=== PATIENT | female | born 1975 | race Caucasian/White ===

== ENCOUNTER 2024-09-01 10:00 | Outpatient (RCR) | payer OTHER, SELFPAY | END 2024-09-01 23:59 | disposition home or self-care (01) | LOC: PT 10:00 | PROVIDERS: Visit Provider Student in an Organized Health Care Education/Training Program | DX: F07.81 Postconcussional syndrome (principal) | CPT/HCPCS: 97110; 97112; 97163 ==

== ENCOUNTER 2024-09-01 11:00 | Outpatient (RCR) | payer OTHER, SELFPAY | END 2024-09-01 23:59 | disposition home or self-care (01) | LOC: ST 11:00 | PROVIDERS: Visit Provider Student in an Organized Health Care Education/Training Program | DX: F07.81 Postconcussional syndrome (principal) | CPT/HCPCS: 92523 ==

== ENCOUNTER 2025-03-10 10:02 | Outpatient (CLI) | payer OTHER, SELFPAY ==
--- OUTSIDE RECORDS SUMMARY | 2025-03-12 10:11 | XMS_ITS | Encounter Summary ---
Author Organization [place] [address] Care Team Providers Care Dog Handler Name Role Phone Anderson Raj Martina MELENDEZ Primary Care Provider + [phone] Reason for Visit * Reason Onset Date Comments Appointment Needed 02/10/2025 Encounter Details Date Type Department Care Team (Late st Contact Info) Description 02/10/2025 Telephone [facility] [address] [place] [phone] Belia Rubi RN Appointment Needed Social History Tobacco Use Types Packs/Day Years Used Date Smoking Tobacco: Never Passive Smoke Exposure: Never Smokeless Tobacco: Never Alcohol Use Standard Drinks/Week Comments Not Currently 0 (1 standard drink = 0.6 oz pur e alcohol) Occasionally B1300 Health Literacy Answer Date Recor ded How often do you need to hav e someone help you when you read instructions, pamphlets, or other written material from your doctor or pharmacy? Never 01/22/2024 Social Connection and Isolation Panel [NHANES] A nswer Date Recorded Frequency of Communication with Friends and Fami ly Not on file 01/22/2024 Frequency of Social Gatherings with Friends and Family Not on file 01/22/2024 Attends Yazidi Services Not on file 01/21 Active Member of Clubs or Organizations Not on f ile 01/22/2024 Attends Club or Organization Meetings Not on sergo e 01/22/2024 Are you , , di vorced, , never , or living with a partner? 01/22/2024 AUDIT-C Answer Date Recorded Q1: How often do you have a drink containing alc ohol? Monthly or less 01/22/2024 Q2: How many drinks containi ng alcohol do you have on a typical day when you are drinking? 1 or 2 01/22/2024 Q3: How often do you have si x or more drinks on one occasion? Never 01/22/2024 Overall Financial Resource Strain (CARDIA) Answe r Date Recorded How hard is it for you to pa y for the very basics like food, housing, medical care, and heating? Not hard at all 01/22/2024 PHQ-2 Answer Date Recorded PHQ-2 Total Score 0 03/24/2024 [facility] - Occupational Stress Questionnaire Answer Date Recorded Do you feel stress - tense, restless, nervous, or anxious, or unable to sleep at night because your mind is troubled all the time - these days? Only a little 01/22/2024 Hunger Vital Sign Answer Date Recorded Within the past 12 months, y ou worried that your food would run out before you got the money to buy more. Never true 01/22/20 24 Within the past 12 months, t he food you bought just didn't last and you didn't have money to get more. Never true 01/22/2024 PRAPARE - Transportation Answer Date Re corded In the past 12 months, has l ack of transportation kept you from medical appointments or from getting medications? No 01/05 In the past 12 months, has l ack of transportation kept you from meetings, work, or from getting things needed for daily living? No 01/22/2024 Housing Stability Vital Sign Answer Demetrio e Recorded In the last 12 months, was t here a time when you were not able to pay the mortgage or rent on time? No 01/22/2024 In the past 12 months, how m any times have you moved where you were living? 0 01/22/2024 At any time in the past 12 m [facility], were you homeless or living in a residential (including now)? No 01/22/2024 Sexually Active Control Partners Comments Not Currently Abstinence, Post-menopausal, Surgical Fe male Comments No Sex and Gender Information Value Date Recorded Sex Assigned at Not on file Legal Sex Female 8:12 AM EDT Gender Identity Not on file Sexual Orientation Not on file documented as of this encounter Functional Status * Is the person deaf or does he/she have serious difficulty hearing? Answer Date of Assessment Author No 03/24/2024 3:57 PM EDT Jaspreet Andrews RMA * Is the person blind or does he/she have serious difficulty seeing even when wearing glasses? Answer Date of Assessment Author No 03/24/2024 3:57 PM EDT Jaspreet Anderws RMA * Does this person have serious difficulty walking or climbing stairs? Answer Date of Assessment Author No 03/24/2024 3:57 PM EDT Jaspreet Andrews RMA * Does this person have difficulty dressing or bathing? Answer Date of Assessment Author No 03/24/2024 3:57 PM EDT Jaspreet Andrews RMA * Because of a physical, mental or emotional condition, does this person have difficulty doing errands alone such as visiting a doctor's office or shopping? Answer Date of Assessment Author No 03/24/2024 3:57 PM EDT Jaspreet Andrews RMMartina documented as of this encounter Mental Status * Because of a physical, mental or emotional condition, does this person have serious difficulty concentrating, remembering or making decisions? Answer Entry Date Author No 03/24/2024 3:57 PM EDT Jaspreet Andrews RMA documented in this encounter Miscellaneous Notes * Telephone Encounter - Brooke Pastor RN - 02/17/2025 2:57 PM EDT Patient messaged that she in not taking the Arimidex. Encounter dated 09/27/24 is a message from to the patient discussing DCISionRT results does state that given her very low score, Dr. Samuel is comfortable with her not taking it. Given this information and the fact that patient's insurance does not cover DEXA scans, we will cancel the scan. Attempted to contact the patient, phone number has been changed or is out of service. Will send a [employer] message. * Telephone Encounter - Belia Rubi RN - 02/10/2025 4:05 PM EDT Pt is seeing [facility] for SVS on 03/30, on Arimidex, hasn't had a Dexa, order is in place. Attemtped tocall pt, number says phone is disconnected. Attemtped x2. Pt has a long drive to get here with a history of TBI. Dexa scheduled at 130, after SVS appt. N sent MyChart msg to patient to update documented in this encounter Plan of Treatment Upcoming Encounters Date Type Department Care Team (Late st Contact Info) Description 03/30/2025 12:30 PM EDT Appointment [facility] [place] [address] [facility] Yeboah, [place] [address] [place] [address] [place] [phone] 04/21/2025 10:20 AM EDT Office Visit [facility] [place] [phone] Yuki Ojeda APRN [address] [facility] [address] [place] [phone] documented as of this encounter Goals Goal Patient Goal Type Associated Problems Recent Progress Patient-Stated? Author Blood Pressure < 140/90 Blood Pressure 110/70(10/07 1:55 PM EDT) No Raj Anderson APRN Breast Health Breast Health On track(2024 3:01 PM EDT) No Jacqui Roman, RN Note: Patient acknowledges understanding of new diagnosis, plan of care, available resources and how to contact Nurse Navigator with any future questions or concerns. Maintain a healthy diet, exercise regularly and maintain an ideal body weight General No Jaspreet Andrews RMA BMI (Calculated) < 30 General 28.4( 025 1:55 PM EDT) No Raj Anderson APRN HEMOGLOBIN A1C < 7.0 Result Component 8.8(09/30/19 25 9:21 AM EDT) No Raj Anderson APRN documented as of this encounter Visit Diagnoses Not on filedocumented in this encounter Care Teams Dog Handler Relationship Specialty Start Date End Date Raj Anderson APRN PCP - General Nurse Practitioner 03/15/21 documented as of this encounter
--- OUTSIDE RECORDS SUMMARY | 2025-03-12 10:11 | XMS_ITS | Patient Health Record ---
Author Organization [facility] Address [address] [place] [address] Care Team Providers Care Long Chain Dyeing Machine Operator Name Role Phone ELAINA HA Primary Care Provider Unavailabl e Allergies Allergen (clinical drug ingredient) Drug/Non Drug Allergy documented on EMR Reaction Allergy Type Onset Date Status gabapentin Gabapentin Face Numbing Drug Allergy Ac tive Reason For Referral No Information Medications Medication SIG (Take, Route, Frequency, Duration) Notes Start Date End Date Status Fiasp PenFill 100 UNIT/ML as directed Subcutaneous Active Lantus 100 UNIT/ML as directed Subcutaneous Active Synthroid 25 MCG 1 tablet in the morn ing on an empty stomach Orally Once a day Active Social History Tobacco Use: Social History Observation Description Date Details (start date - stop date) Never Smoker NA - NA Tobacco Control (Standard) Question Answer Notes Tobacco use: Nonsmoker AUDIT-C (Standard) Question Answer Notes Did you have a drink contain ing alcohol in the past year? Yes How often did you have six o r more drinks on one occasion in the past year? 2 to 4 times a month (2 points) How many drinks did you have on a typical day when you were drinking in the past year? 3 or 4 drinks (1 point) How often did you have a dri nk containing alcohol in the past year? Never (0 point) Points 3 Interpretation Positive Problems Problem Type SNOMED Code ICD Code Onset Dates Problem Status W/U Status Risk Notes Problem Type 1 diabetes mellitus (56367700) Type 1 diabetes mellitus (E10.9) Active confirmed Problem Hypothyroid (78587253) Hypothyroid (E03.9) Active confirmed Plan Of Treatment No Information Insurance Providers Payer Name Payer Address Payer Phone Subscriber Number Group Number Insured Name Patient Relationship to Insured Coverage Start Date Coverage End Date [employer] [place] [address] [place] [address] [id number] Emily Nguyen Self - patient is the insured Medical (General) History Medical History History ICD Code Type 1 diabetes mellitus E10.9 Hypothyroid E03.9 Surgical History Surgery Date(Month/Year) Back Surgery 2X hysterectomy Hospitalization History Reason Date(Month/Year) Back Surgery Child
--- OUTSIDE RECORDS SUMMARY | 2025-03-12 10:11 | XMS_ITS | Clinical Summary ---
Author Organization [facility] Call Center Address [address] [place] [address] Phone Care Team Providers Care Hl7 Developer Name Role Phone Raj Anderson [place] Primary Care Provider + [phone] Allergies Active Allergy Reactions Criticality Noted Date Comments Azithromycin Other (See Comments) Low 05/17/2021 Body redness Gabapentin Swelling 09/16/2024 facial swelling Pravastatin Myalgia Low 04/17/2023 Prednisone Other (See Comments) Low 05/17/2021 Body redness Medications * This document contains information received from the source organization and may not represent a complete record from that organization. rimegepant 75 mg Oral Tablet, Rapid DissolveIndicatio ns:Migraine without aura and without status migrainosus, not intractable Take 1 Tablet by mouth daily as needed. 8 Tablet 2 03/20/20 22 Active Acetone, Urine, Test (KETONE URINE TEST) [facility] StripIndications: Type 1 diabetes mellitus without complication (HCC) 1 Each by [facility].(Non-Drug; Combo Route) route as needed. Test if blood sugar >250 and/or ill. E10.65 50 Each 2 04/30/20 22 Active glucagon (GVOKE HYPOPEN 2-PACK) 1 mg/0.2 mL SubQ Auto-InjectorIndi cations:Type 1 diabetes mellitus without complication (HCC) Subcutaneous (Inject under the skin) 0.2 mL as needed (To be used for severe low blood sugar. E10.65). 1 Each 2 04/17/20 23 Active Insulin Downey, Disposable, (BD ADELINA 2ND GEN PEN NEEDLE) 32 gauge x [facility] NeedleIndications :Type 1 diabetes mellitus without complication (HCC) Use to inject insulin 4 times daily. 400 Each 1 07/17/19 24 Active simvastatin (ZOCOR) 10 mg Oral Tablet Take 1 Tablet by mouth nightly. 90 Tablet 3 08/21/19 24 Active Blood-Glucose Sensor (FREESTYLE DEION 3 SENSOR) [facility] DeviceIndications :Type 1 diabetes mellitus with hyperglycemia (HCC) 1 Each by [facility]Non-Drug; Combo Route) route every 14 days. 2 Each 5 01/15/20 24 Active Additional Information Patient not taking.Reported on 10/07/2024 metFORMIN (GLUCOPHAGE XR) 500 mg Oral ER 24 hr tabletIndications :Type 1 diabetes mellitus with hyperglycemia (HCC) Take 1 Tablet by mouth daily. 90 Tablet 3 01/15/20 24 Active anastrozole (ARIMIDEX) 1 mg Oral Tablet Take 1 Tablet by mouth daily. 30 Tablet 5 01/29/20 24 Active Additional Information Patient not taking.Reported on 10/07/2024 insulin aspart, niacinamide, (FIASP FLEXTOUCH U-100 INSULIN) 100 unit/mL (3 mL) SubQ Insulin PenIndications:Ty pe 1 diabetes mellitus without complication (HCC) Subcutaneous (Inject under the skin) 10-14 Units 3 times daily (with meals). On sliding scale max dose 60 units daily 60 mL 3 04/13/20 24 Active venlafaxine (EFFEXOR) 37.5 mg Oral TabletIndications :Generalized anxiety disorder Take 1 Tablet by mouth 2 times daily (with meals). 180 Tablet 3 06/08/20 24 Active oxyCODONE (ROXICODONE) 5 mg Oral Tablet Take 1 Tablet by mouth every 4 hours as needed for Major Surgery/Trauma (G89.18). 15 Tablet 5 6:03 PM EST 07/22/19 25 Active lancets (ONE TOUCH DELICA) 33 gauge [facility] 1 Each by [facility]Non-Drug; Combo Route) route 3 times daily. 150 Each 5 10/08/19 25 Active insulin glargine (LANTUS SOLOSTAR U-100 INSULIN) 100 unit/mL (3 mL) SubQ Insulin PenIndications:Ty pe 1 diabetes mellitus with hyperglycemia (HCC) Inject 27 units once a day 30 mL 3 10/08/19 25 Active LEVOthyroxine (SYNTHROID) 100 mcg Oral TabletIndications :Hypothyroidism (acquired) Take 1 tablet by mouth once daily 100 Tablet 1 10/21/19 25 Active insulin lispro (HUMALOG) 100 unit/mL SubQ Insulin PenIndications:Ty pe 1 diabetes mellitus with hyperglycemia (HCC) INJECT UP TO 60 UNITS DAILY IN DIVIDED DOSES 60 mL 01/26/20 25 Active Blood Sugar Diagnostic (ONETOUCH VERIO TEST STRIPS) Misc Strip Use to check Blood Sugar 4 times daily 150 Each 5 02/18/20 25 Active Blood Sugar Diagnostic (ONETOUCH VERIO TEST STRIPS) Misc Strip Use to check Blood Sugar daily 100 Each 11 12/08/19 25 025 Discontin ued(Reord er) Active Problems Problem Noted Date Diagnosed Date 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 Cancer Staging:Pathologic:Stage Unknown(pTis (DCIS), pNX, G2, ER+, IL+, HER2: Not Assessed) - Unsigned Type 1 diabetes mellitus with hyperglycemia 04/07 Long-term insulin use 04/17/2023 Encounter for long-term (current) use of medicat ions 04/17/2023 Dyslipidemia due to type 1 diabetes mellitus 05/2023 Thyromegaly 04/17/2023 Vitamin D deficiency 03/21/2023 Generalized anxiety disorder 03/15/2021 Hypothyroidism (acquired) 03/15/2021 Resolved Problems Problem Noted Date Diagnosed Date Resolved Date Type 1 diabetes mellitus without complication 03/15/20 21 10/07/2024 Hyperlipidemia 06/07/2020 10/07/2024 Encounters Date Type Department Care Team Description 02/10/2025 Telephone [facility] Women's Wellness [place] [place] [address] Belia Rubi RN Appointment Needed 02/10/2025 Orders Only [facility] [address] [place] [address] Raj Anderson APRN Screening for cancer of the rectum; Screen for colon cancer 01/23/[address] [facility] [address] [facility] [address] [place] [phone] Yuki Ojeda APRN Medication Refill 01/07/2025 Telephone [facility] [address] [facility] [address] [place] [phone] Yuki Ojeda APRN Prior Authorization (Deion 3 sensor-approved) 12/29/2024 Telephone [facility] [address] [place] [address] Raj Anderson APRN Appointment Needed from Last 3 Months Immunizations Immunization Administration Dates Next Due Influenza Seasonal Injectable PF 03/24/2024 Moderna SARS-CoV-2 Vaccine 12+ Yrs (Light blue b order) 04/14/2021,03/15/2021 Pneumococcal Conjugate Vaccine 20 Valent 024 Surgical History Surgery Date Site/Laterality Comments BACK SURGERY 07/08/1987 - 07/07/1988 rods in back SECTION x 2 HYSTERECTOMY, SUPRACERVICAL BREAST BIOPSY 01/14/2024 Right BREAST LUMPECTOMY 07/22/2024 Right Right breast lumpectomy with bracket needle localization; Surgeon: Renetta Samuel MD; Location: [facility]; Service: General Medical History Medical History Date Comments Diabetes type 1, uncontrolled Anxiety Hyperlipemia Depression Hypothyroidism Heart murmur Headache Cancer (HCC) breast Encounter for blood transfusion Anesthesia complication woke up with facial swelling and ithching Family History Medical History Relation Name Comments Coronary Art Dis Father Dad Diabetes Father Dad Heart Attack Father Dad High Blood Pressure Father Dad High Cholesterol Father Dad Cancer Mother Ghazal breast cancer Diabetes Mother Ghazal Diabetes Paternal Grandmother [place] Anesth Problems Neg Hx Relation Name Status Comments Father Dad Mother Ghazal Paternal Grandmother [place] Social History Tobacco Use Types Packs/Day Years Used Date Smoking Tobacco: Never Passive Smoke Exposure: Never Smokeless Tobacco: Never Tobacco Cessation:Counseling Given: Not Answered Alcohol Use Standard Drinks/Week Comments Not Currently [...] and Family Not on file 01/22/2024 Attends Faith Services Not on file 01/21 Active Member [...] Date Recorded PHQ-2 Total Score 0 03/24/2024 [facility] Occupat ional Health - Occupational Stress [...] any time in the past 12 [address] [place], were you homeless or living in a halfway (including now)? No 01/22/2024 Sexually Active Control Partners Comments Not Currently Abstinence, Post-menopausal, Surgical Fe male Comments No Sex and Gender Information Value Date Recorded Sex Assigned at Not on file Legal Sex Female 8:12 AM EDT Gender Identity Not on file Sexual Orientation Not on file Obstetrics History Para Term AB IAB SAB Ectopic Multiple Livin g Live Births 3 3 3 Date Outcome GA Total Labor Labor/2nd/3rd Weight Sex Type Anes PTL Jing A1 A5 Name Clin Term Term Term Last Filed Vital Signs Vital Sign Reading Time Taken Comments Blood Pressure 110/70 10/07/2024 1:55 PM EDT Pulse 98 10/07/2024 1:55 PM EDT Temperature 36.8 C (98.2 F) 09/16/2024 2:59 PM EDT Respiratory Rate 12 10/07/2024 1:55 PM EDT Oxygen Saturation 100% 07/22/2024 10:45 PM EST Inhaled Oxygen Concentration - - Weight 71.2 kg (157 lb) 10/07/2024 1:55 PM EDT Height 158.5 cm (5' 2.4 ) 10/07/2024 1:55 PM EDT Body Mass Index 28.35 10/07/2024 1:55 PM EDT Plan of Treatment Upcoming Encounters Date Type Department Care Team (Late st Contact Info) Description 03/30/2025 12:30 PM EDT Appointment [facility] Women's Wellness [place] [facility] [place] [address] [place] NP [address] [facility] [place] [phone] 04/21/2025 10:20 AM EDT Office Visit [facility] [address] [phone] LynetteYuki nj APRN [address] [facility] [address] [place] [phone] Health Maintenance Due Date Last Done Comments DTaP/TDaP/Td (1 - Tdap) 1993 Hepatitis B Vaccine (1 of 3 - 19+ 3-dose series) 1993 Cologuard 2019 Colon Cancer Screening 2019 Colonoscopy 2019 FIT 2019 Sigmoidoscopy 2019 Virtual Colonography 2019 Diabetic Eye Exam 09/20/2023 09/19/2021 Zoster (1 of 2) 2024 COVID-19 Vaccine ( season) 2025 04/14/2021, 03/15/2021 Influenza Vaccine (#1) 2025 03/24/2024 Annual Wellness Exam 03/24/2025 03/24/2024 Kidney Health: uACR 03/24/2025 03/24/2024, Hemoglobin A1c 04/01/2025 09/29/2024, 06/0 09/2023, 08/12/2023, Additional history exists Kidney Health: eGFR 09/29/2025 09/29/2024, 12/09/2023, 08/12/2023, Additional history exists Lipids 09/29/2025 09/29/2024, 06/0 09/2023, 08/12/2023, Additional history exists Breast Cancer Screening 01/09/2026 01/10/2024, 12/18 Pap Smear 01/23/2027 01/24/2024 Cervical Cancer Screening 01/23/2029 HPV/Pap Cotest 01/23/2029 01/24/2024 Pneumococcal Vaccine 50+ Completed 03/24/2024 Meningococcal B Vaccine Aged Out No l onger eligible based on patient's age to complete this topic Goals Goal Patient Goal Type Associated Problems [...] HEMOGLOBIN A1C < 7.0 Result Component 8.8(09/30/19 9:21 AM EDT) No Raj Anderson APRN Procedures Procedure Name Priority Date/Time Associated Diagnosis Comments COMPREHENSIVE METABOLIC PANEL Routine 09/29/2024 9:21 AM EDT Encounter for long-term (current) use of medications LIPID PANEL REFLEX Routine 09/29/2024 9: 21 AM EDT Dyslipidemia due to type 1 diabetes mellitus (HCC) HEMOGLOBIN A1C Routine 09/29/2024 9:21 AM EDT Type 1 diabetes mellitus with hyperglycemia (HCC) FIRE CONTROL TECHNICIAN CYTOLOGY REQUEST (PAP ONLY) Routine 01/24/2024 2:19 PM EDT Cervical cancer screening Screening for HPV (human papillomavirus) MM MAMMO DIGITAL HELEN DIAGN RIGHT Routine 01/10/2024 3:10 PM EDT Abnormal mammogram MICROALBUMIN/CREATINI NE RATIO URINE Routine 04/08/2023 8:20 AM EDT Hypothyroidism (acquired) Type 1 diabetes mellitus with hyperglycemia (HCC) Vitamin D deficiency HM DIABETES EYE EXAM Routine 09/19/2021 from Last 3 Months or Most Recently Relevant to Health Maintenance Results * (ABNORMAL) LIPID PANEL REFLEX (09/29/2024 9:21 AM EDT) Cholesterol 280(H) <200 mg/dL 09/29/2024 7:55 PM EDT [facility] Comment: < 200 Desirable 200 - 239 Borderline High >= 240 High Triglyceride 139 <150 mg/dL 09/29/2024 7:55 PM EDT [facility] [employer] Comment: < 150 Normal 150 - 199 Borderline High 200 - 499 High >= 500 Very High HDL 55 >=40 mg/dL 09/29/2024 7:55 PM EDT [facility], [facility] Comment: > 60 Optimal 40 - 60 Acceptable < 40 Low LDL Calculated 200(H) <100 mg/dL 09/29/2024 7:55 PM EDT [facility] [employer], [facility] Comment: < 100 Optimal 100 - 129 Near or above optimal 130 - 159 Borderline High 160 - 189 High >= 190 Very High The National Institutes of Health (NIH) equation is used for all lipid panels that report calculated LDL (LDL-C). Non-HDL-C Calculated 225(H) <=129 mg/dL 09/29/2024 7:55 PM EDT [facility] [employer], [facility] Comment: <130 Desirable 130-159 Above Desirable 160-189 Borderline High 190-219 High >= 220 Very High Fasting Specimen? Yes None 025 7:55 PM EDT [facility] Blood VENOUS BLOOD / Unknown Venipuncture / Unknown 09/29/2024 9:21 AM EDT 09/29/2024 9:21 AM EDT Yuki Ojeda APRN CHEMISTRY ORDERABLES Final R esult [facility] [employer] [facility] [address] [facility] , [place] [address] * (ABNORMAL) HEMOGLOBIN A1C (09/29/2024 9:21 AM EDT) Hgb A1C 8.8(H) 4.2 - 5.6 % 09/29/2024 8:14 PM EDT [facility] [employer] [facility] Est. Avg Glucose 206 mg/dL 09/29/2024 8:14 PM EDT [facility] [employer], [facility] Blood VENOUS BLOOD / Unknown Venipuncture / Unknown 09/29/2024 9:21 AM EDT 09/29/2024 9:21 AM EDT Narrative [facility] - 09/29/2024 8:14 PM EDT REFERENCE RANGE: Normal: 4.0-5.6% Pre-diabetes: 5.7-6.4% Provisional diagnosis of diabetes: >6.4% Hgb F>10% and anything which shortens red cell survival, such as hemolytic anemia, or unstable hemoglobin variants such as HbSS, HbSC, or HbCC, will lower the HbA1c value associated with a given level of glycemic control. Yuki Ojeda COTTON WEIGHER OPERATOR CHEMISTRY ORDERABLES Final R esult [facility], [facility] [address] [facility] , [place] [address] * (ABNORMAL) COMPREHENSIVE METABOLIC PANEL (09/29/2024 9:21 AM EDT) Sodium 142 136 - 145 mmol/L 09/29/2024 7:55 PM EDT [facility] Potassium 3.8 3.5 - 5.0 mmol/L 09/29/2024 7:55 PM EDT [facility] Chloride 103 98 - 107 mmol/L 09/29/2024 7:55 PM EDT [facility] Total CO2 26 22 - 29 mmol/L 09/29/2024 7:55 PM EDT [facility] Anion Gap 13 7 - 16 mmol/L 09/29/2024 7:55 PM EDT [facility] Calcium 9.1 8.6 - 10.4 mg/dL 09/29/2024 7:55 PM EDT [facility] Glucose Lvl 208(H) 70 - 99 mg/dL 09/29/2024 7:55 PM EDT [facility] BUN 15 6 - 20 mg/dL 09/29/2024 7:55 PM EDT [facility] Creatinine 0.71 0.51 - 1.30 mg/dL 09/29/2024 7:55 PM EDT [facility] Albumin 4.2 3.5 - 5.2 gm/dL 09/29/2024 7:55 PM EDT [facility] Total Protein 7.3 6.4 - 8.3 gm/dL 09/29/2024 7:55 PM EDT [facility] Bili Total 0.2 0.2 - 1.3 mg/dL 09/29/2024 7:55 PM EDT [facility], [facility] ALT 24 <=41 U/L 09/29/2024 7:[address] [facility], [facility] AST 18 <=40 U/L 09/29/2024 7:[address] [facility], [facility] Alk Phos 106 36 - 123 U/L 09/29/2024 7:[address] [facility], [facility] eGFR (CKD-EPIcr 2020) 103 >=60 mL/min/1.7 3 m2 09/29/2024 7:55 PM EDT [facility], [facility] Comment:Estimated GFR was ca lculated using the CKD-EPIcr (2020) equation refit without race. The equation is recommended by the National Kidney Foundation - [place] [employer] of Nephrology Task Force. Blood VENOUS BLOOD / Unknown Venipuncture / Unknown 09/29/2024 9:21 AM EDT 09/29/2024 9:21 AM EDT us Yuki Ojeda COTTON WEIGHER OPERATOR CHEMISTRY ORDERABLES Final R esult [facility] 1 [facility] , [place] [id number] * FIRE CONTROL TECHNICIAN CYTOLOGY REQUEST (PAP ONLY) (01/24/2024 2:19 PM EDT) CASE REPORT Gynecologic Cytology Report Case: [id number] Authorizing Provider: Monik Ricks MD Collected: 01/24/2024 1419 Ordering Location: [facility] Edg Received: 01/24/2024 1419 First Screen: Brigitte Flores CT Specimen: LIQUID-BASED PAP - CERVICAL/ENDOCERV ICAL, Cervix, Endocervical 01/28/2024 4:01 PM EDT [facility] PAP FINAL DIAGNOSIS Negative for intraepithelial lesion or malignancy 01/28/2024 4:01 PM EDT [facility] at 1601 EDT MICROSCOPIC DESCRIPTION Microscopic examination is performed and the findings corroborate the diagnosis. 01/28/2024 4:01 PM EDT [facility] PAP SMEAR ADEQUACY Satisfactory for evaluation 01/28/2024 4:01 PM EDT [facility] PAP ORGANISMS NOTED Shift in kaitlynn suggestive of bacterial vaginosis. 01/28/2024 4:01 PM EDT [facility] ENDOCERVICAL T-ZONE Transformation Zone Absent. This is not unusual for a post-hysterectomy woman. 01/28/2024 4:01 PM EDT [facility] EMBEDDED IMAGES 4:01 PM EDT [facility] PAP DISCLAIMER The Pap Smear is a screening test that aids in the detection of cervical cancer and cancer precursors. Both false positive and false negative results can occur. The test should be used at regular intervals, and positive results should be confirmed before definitive therapy. Processed using the ThinPrep Micro Computer Data Processor Automated cytology screening device (Seeqpod). 01/28/2024 4:01 PM EDT [facility] Thin Prep ENDOCERVICAL STRUCTURE / Unknown 01/24/2024 2:19 PM EDT 01/24/2024 2:19 PM EDT us Monik Ricks MD CYTOLOGY ORDERABLES Fin al Result [facility] [address] [place] [address] * MM MAMMO DIGITAL HELEN DIAGN RIGHT (01/10/2024 3:10 PM EDT) Anatomical Region Laterality Modality Breast Right Mammography 01/10/2024 3:56 PM EDT Impressions 01/10/2024 3:56 PM EDT Suspicious abnormality ([id number]) Indeterminate right breast microcalcifications, biopsy recommended. ~ RECOMMENDATION: Stereotactic core biopsy. Today's imaging findings and biopsy recommendations discussed with the patient by Dr. Hughes. This procedure is being scheduled for the patient prior to leaving the department. A limited history is obtained and reported separately. The referring physician's office will be notified with the report and recommendation. ~ DISCLAIMER * Any patient with a palpable abnormality, unexplained by breast imaging, should be managed on clinical basis by the attending physician. * Breast imaging has a false negative rate of 15%. * The patient was notified by mail of the results of this examination. *The patient's information was entered into a reminder system with a target due date for the next mammogram, in accordance with the [place] [employer] and the Society of Breast Imaging recommendations. Narrative 01/10/2024 3:56 PM EDT Procedure:MM MAMMO DIGITAL HELEN DIAGN RIGHT ~ Reason for exam: addl evaluation requested from abnormal screening. R92.8-Other abnormal and inconclusive findings on diagnostic imaging of [id number] ~ MM MAMMO DIGITAL HELEN DIAGN RIGHT CC and MLO view(s) were taken of the right breast. Technologist: RT Omayra The breast tissue is heterogeneously dense. This may lower the sensitivity of mammography. Prior study comparison: Compared with prior studies, the most recent being 12/19/23, 11/17/19. Screening recall for right breast microcalcifications. In the posterior 10:00 to 11:00 position, there are grouped mildly heterogeneous calcifications which span 9-10 mm. No underlying mass or distortion. ~ Procedure Note Vanessa Hughes MD - 01/10/2024 Procedure:MM MAMMO DIGITAL HELEN DIAGN RIGHT ~ Reason for exam: addl evaluation requested from abnormal screening. R92.8-Other abnormal and inconclusive findings on diagnostic imaging of [id number] ~ MM MAMMO DIGITAL HELEN DIAGN RIGHT CC and MLO view(s) were taken of the right breast. Technologist: RT Omayra The breast tissue is heterogeneously dense. This may lower thesensitivity of mammography. Prior study comparison: Compared with prior studies, the most recentbeing 12/19/23, 11/17/19. Screening recall for right breast microcalcifications. In the posterior 10:00 to 11:00 position, there are grouped mildly heterogeneous calcifications which span 9-10 mm. No underlying mass or distortion. ~ IMPRESSION: Suspicious abnormality ([id number]) Indeterminate right breast microcalcifications, biopsy recommended. ~ RECOMMENDATION: Stereotactic core biopsy. Today's imaging findings and biopsy recommendations discussed with the patient by Dr. Hughes. This procedure is being scheduled for thepatient prior to leaving the department. A limited history is obtained andreported separately. The referring physician's office will be notified with the report and recommendation. ~ DISCLAIMER * Any patient with a palpable abnormality, unexplained by breast imaging, should be managed on clinical basis by the attending physician. * Breast imaging has a false negative rate of 15%. * The patient was notified by mail of the results of this examination. *The patient's information was entered into a reminder system with atarget due date for the next mammogram, in accordance with the [place] [employer] and the Society of Breast Imaging recommendations. Cristofer Ramachandran MD IMG MAMMOGRAPHY ORDERAB LES Final Result * MICROALBUMIN/CREATININE RATIO URINE (04/08/2023 8:20 AM EDT) Urine Microalb <12.0 mg/L 04/08/2023 9:47 PM EDT [facility] Urine Creatinine 116.2 mg/dL 04/08/20 23 9:47 PM EDT [facility] Ur Microalb/Creat 023 9:47 PM EDT [facility] Comment: Because the albumin level is below the level of detection in this urine specimen, the laboratory is unable to calculate a reliable albumin/creatinine ratio. Microalbuminuria is unlikely if the urine albumin concentration is less than 20- 30 mg/L in a random specimen. Urine URINE SPECIMEN COLLECTION / Unknown 04/08/2023 8:20 AM EDT 04/08/2023 8:20 AM EDT Chad Sheehan MD URINE ORDERABLES Final Res ult [facility] [address] [facility] , [place] [address] * DIABETES EYE EXAM (09/19/2021) Left Diabetic Retinopathy Not Present Present/Not Present [facility] Comment:Diabetic Retinopathy Right Diabetic Retinopathy Not Present Present/Not Present [facility] Comment:Diabetic Retinopathy Arnav Bedoya MD HEALTH MAINTENANCE Final Result [facility] OFFICE from Last 3 Months or Most Recently Relevant to Health Maintenance Insurance [address] [place] [address] [facility] [employer] [facility] [facility] [employer] Care Teams Hl7 Developer Relationship Specialty Start Date End Date Raj Anderson APRN PCP - General Nurse Practitioner 03/15/21
--- OUTSIDE RECORDS SUMMARY | 2025-03-12 10:11 | XMS_ITS | Encounter Summary ---
Author Organization [place] [address] Care Team Providers Care Cottage Attendant Name Role Phone Elieser Andersonian Martina MELENDEZ Primary Care Provider + [phone] Reason for Visit * Reason Onset Date Comments Prior Authorization 01/07/2025 Deion 3 sens or-approved Encounter Details Date Type Department Care Team (Late st Contact Info) Description 01/07/2025 Telephone [facility] [address] [facility] [address] [place] [id number] Yuki Ojeda APRN 1500 [facility] [address] [place] [phone] Prior Authorization (Deion 3 sensor-approved) Social History Tobacco Use Types Packs/Day Years [...] and Family Not on file 01/22/2024 Attends Mandaeism Services Not on file 01/21 Active Member [...] Date Recorded PHQ-2 Total Score 0 03/24/2024 [facility] of Occupat ional Health [...] any time in the past 12 m [facility], were you homeless or living in a group home (including now)? No 01/22/2024 Sexually Active Control [...] Andrews RMA * Does this person have serious [...] 3:57 PM EDT Jaspreet Andrews RMA documented as of this encounter Mental Status * Because of a physical, mental or emotional condition, does this person have serious difficulty concentrating, remembering or making decisions? Answer Entry Date Author No 03/24/2024 3:57 PM EDT Jaspreet Andrews RMMartina documented in this encounter Miscellaneous Notes * Telephone Encounter - Sera Lima MA - 01/12/2025 6:51 AM EDT approved 01/07/25-01/07/26 * Telephone Encounter - Sera Lima MA - 01/07/2025 3:08 PM EDT pa completed for Deion 3 sensor BAAMBRGY documented in this encounter Plan of Treatment Upcoming Encounters Date Type Department Care Team (Late st Contact Info) Description 03/30/2025 12:30 PM EDT Appointment [facility] Women's Wellness [place] One [facility] [place] [address] Carson Yeboah NP [address] [place] [address] [place] [address] 04/21/2025 10:20 AM EDT Office Visit [facility] [address] [place] [phone] Yuki Ojeda APRN [address] [phone] documented as of this encounter Goals [...] on filedocumented in this encounter Care Teams Cottage Attendant Relationship Specialty Start Date End Date Raj Anderson APRN PCP - General Nurse Practitioner 03/15/21 documented as of this encounter
--- OUTSIDE RECORDS SUMMARY | 2025-03-12 10:11 | XMS_ITS | Encounter Summary ---
Author Organization [place] [address] Care Team Providers Care Milieu Therapist Name Role Phone Raj Anderson APRN Primary Care Provider + [phone] Reason for Visit * Reason Comments Medication Refill Encounter Details Date Type Department Care Team (Late st Contact Info) Description 01/23/2025 Refill [facility] Physicians [facility] [place] 1500 [facility] [address] [place] [phone] Yuki Ojeda APRN 1500 [facility] [address] [place] [phone] Medication Refill Social History Tobacco Use Types Packs/Day Years [...] and Family Not on file 01/22/2024 Attends Hinduism Services Not on file 01/21 Active Member [...] Date Recorded PHQ-2 Total Score 0 03/24/2024 [facility] - [facility]ational Stress Questionnaire Answer Date Recorded [...] any time in the past 12 m [facility], were you homeless or living in a prison (including now)? No 01/22/2024 Sexually Active Control [...] Jaspreet Andrews RMA documented in this encounter Ordered Prescriptions Prescription Sig Dispense Quantity Refills Last Filled Start Date End Date insulin lispro (HUMALOG) 100 unit/mL SubQ Insulin PenIndications:Type 1 diabetes mellitus with hyperglycemia (HCC) INJECT UP TO 60 UNITS DAILY IN DIVIDED DOSES 60 mL 01/25/2025 documented in this encounter Miscellaneous Notes * Telephone Encounter - Cindi Lopez CPhT - 01/25/2025 1:23 PM EDT Insulin Lispro - Future Visit: 04-21-25 Last Assessed Visit: 10-07-24 Follow-Up: 01-06-25 All protocols passed. Refills approved and sent to requesting pharmacy. Routed to PN Pool if an appointment is needed. documented in this encounter Plan of Treatment Upcoming Encounters Date Type Department Care Team (Late st Contact Info) Description 03/30/2025 12:30 PM EDT Appointment [facility] Women's Wellness [place] One [facility] [place] [address] Carson Yeboah, LUCA [address] [place] [address] [place] [address] 04/21/2025 10:20 AM EDT Office Visit [facility] [place] [address] [place] [address] Yuki Ojeda APRN [address] [phone] documented as of this encounter [...] documented as of this encounter Visit Diagnoses Diagnosis Type 1 diabetes mellitus with hyperglycemia (HCC) Type I (juvenile type) diabetes mellitus without mention of complication, not stated as uncontrolled documented in this encounter Discontinued Medications Medication Sig Discontinue Reason Start Date End Da te insulin lispro (HUMALOG KWIKPEN INSULIN) 100 unit/mL SubQ Insulin PenIndications:Type 1 diabetes mellitus with hyperglycemia (HCC) Inject up to 60 units daily in divided doses. Dx Code: E10.9 07/27/2024 01/25/2025 documented as of this encounter Care Teams Milieu Therapist Relationship Specialty Start Date End Date Raj Anderson APRN PCP - General Nurse Practitioner 03/15/21 documented as of this encounter
--- OUTSIDE RECORDS SUMMARY | 2025-03-12 10:11 | XMS_ITS | Encounter Summary ---
Author [place] [address] Care Team Providers Care Assistant Refinery Operator Name Role Phone Raj Anderson APRN Primary Care Provider [phone] Reason for Referral * Genetic Lab Test (Routine) - Pending Review Specialty Diagnoses / Procedures Referred By Nancy mcclellan Referred To Contact Diagnoses Screening for cancer of the rectum Screen for colon cancer Procedures COLOGUARD Raj Anderson APRN [address] [place] [address] Phone: tel: fax: Referral ID Status Reason Start Date Expiration Date V isits Requested Visits Authorized [id number] Pending Review 02/10/2025 02/10/2026 1 1 Encounter Details Date Type Department Care Team (Late st Contact Info) Description 02/10/2025 Orders Only [facility] [address] [place] [address] Raj Anderson APRN [address] [place] [address] Screening for cancer of the rectum; Screen for colon cancer Social History Tobacco Use Types Packs/Day Years [...] and Family Not on file 01/22/2024 Attends Mandaen Services Not on file 01/21 Active Member [...] Date Recorded PHQ-2 Total Score 0 03/24/2024 [facility] of Occupat ional Health - Occupational Stress [...] any time in the past 12 m [facility], were you homeless or living in a snf (including now)? No 01/22/2024 Sexually Active Control [...] of Assessment Author No 03/24/2024 3:57 PM DOUGT Jaspreet Andrews RMA * Does this person [...] Jaspreet Andrews RMA documented in this encounter Plan of Treatment Upcoming Encounters Date Type Department Care Team (Late st Contact Info) Description 03/30/2025 12:30 PM EDT Appointment [facility] Women's Wellness [place] [facility] [place] [place] [address] Carson Yeboah NP [address] [place] [address] [place] [phone] 04/21/2025 10:20 AM EDT Office Visit [facility] [place] [address] [place] [address] Yuki Ojeda APRN [address] [phone] Scheduled Orders Name Type Priority Associated Diagnoses Orde r Schedule COLOGUARD Microbiology Routine Screening for cancer of the rectum Screen for colon cancer 1 Occurrences starting 02/10/2025 until 02/10/2026 documented as of this encounter Goals Goal [...] as of this encounter Visit Diagnoses Diagnosis Screening for cancer of the rectum Screening for malignant neoplasm of the rectum Screen for colon cancer Special screening for malignant neoplasms, colon documented in this encounter Care Teams Assistant Refinery Operator Relationship Specialty Start Date End Date Raj Anderson APRN PCP - General Nurse Practitioner 03/15/21 documented as of this encounter
--- OUTSIDE RECORDS SUMMARY | 2025-03-12 10:11 | XMS_ITS | Encounter Summary ---
Author Organization [address] [place] [address] Care Team Providers Care Machine Bobbin Winder Name Role Phone Raj Anderson APRN Primary Care Provider + [phone] Krystin Padilla RN Unavailable [phone] Encounter Details Date Type Department Care Team (Late st Contact Info) Description 01/14/2024 Orders Only [facility] One [facility] [place] [address] Swetha Turcios MD [address] [place] [phone] Social History Tobacco Use Types Packs/Day Years Used Date Smoking Tobacco: Never Smokeless Tobacco: Never Alcohol Use Standard Drinks/Week Comments Yes 0 (1 standard drink = 0.6 oz pur e alcohol) 2-3 x weekly PHQ-2 Answer Date Recorded PHQ-2 Total Score 0 03/15/2021 Sexually Active Control Partners Comments Yes Surgical Female Comments No Sex and Gender Information Value Date Recorded Sex Assigned at Not on file Legal Sex Female 8:12 AM EDT Gender Identity Not on file Sexual Orientation Not on file documented as of this encounter Functional Status * Is the person deaf or does he/she have serious difficulty hearing? Answer Date of Assessment Author No 03/15/2021 9:19 AM EDT Jaspreet Andrews RMA * Is the person blind or does he/she have serious difficulty seeing even when wearing glasses? Answer Date of Assessment Author No 03/15/2021 9:19 AM EDT Jaspreet Andrews RMA * Does this person have serious difficulty walking or climbing stairs? Answer Date of Assessment Author No 03/15/2021 9:19 AM EDT Jaspreet Andrews RMA * Does this person have difficulty dressing or bathing? Answer Date of Assessment Author No 03/15/2021 9:19 AM EDT Jaspreet Andrews RMA * Because of a physical, mental or emotional condition, does this person have difficulty doing errands alone such as visiting a doctor's office or shopping? Answer Date of Assessment Author No 03/15/2021 9:19 AM EDT Jaspreet Andrews RMA documented as of this encounter Mental Status * Because of a physical, mental or emotional condition, does this person have serious difficulty concentrating, remembering or making decisions? Answer Entry Date Author No 03/15/2021 9:19 AM EDT Jaspreet Andrews RMA documented in this encounter Plan of Treatment Upcoming Encounters Date Type Department Care Team (Late st Contact Info) Description 03/30/2025 12:30 PM EDT Appointment [facility] Women's Wellness [facility] [place] [address] Carson Yeboah NP [address] [place] [address] [place] [phone] 04/21/2025 10:20 AM EDT Office Visit [facility] [address] [address] Yuki Ojeda APRN [address] [address] documented as of this encounter Goals Goal Patient Goal Type Associated Problems Recent Progress Patient-Stated? Author Blood Pressure < 140/90 Blood Pressure 110/70(2024 1:55 PM EDT) No Raj Anderson APRN Maintain a healthy diet, exercise regularly and maintain an ideal body weight General No Jaspreet Andrews RMA BMI (Calculated) < 30 General 28.4(10/08/19 1:55 PM EDT) No Raj Anderson APRN HEMOGLOBIN A1C < 7.0 Result Component 8.8( 9:21 AM EDT) No Raj Anderson APRN documented as of this encounter Procedures Procedure Name Priority Date/Time Associated Diagnosis Comments NEOGENOMICS BREAST PANEL (2 STAIN) Routine 01/14/2024 1:26 PM EDT documented in this encounter Results * NEOGENOMICS BREAST PANEL (2 STAIN) (01/14/2024 1:26 PM EDT) 01/14/2024 1:26 PM EDT Narrative [facility] - 01/21/2024 11:52 AM EDT Requesting Provider: ELAINA Simental Specimen = [id number] Swetha Turcios MD PATHOLOGY ORDERABLES Final Result Performing Organization Address City/State/[facility] Co de Phone Number [facility] [address] [place] [address] documented in this encounter Visit Diagnoses Not on filedocumented in this encounter Care Teams Machine Bobbin Winder Relationship Specialty Start Date End Date Raj Anderson APRN PCP - General Nurse Practitioner 03/15/21 Krystin Padilla, RN Oncology Nurse Navigator 01/16/2409/05 documented as of this encounter
--- OUTSIDE RECORDS SUMMARY | 2025-03-12 10:11 | XMS_ITS | Encounter Summary ---
Author Organization [place] [address] Care Team Providers Care Batch Mixer Name Role Phone Raj Anderson Martina MELENDEZ Primary Care Provider + [phone] Krystin Padilla RN Unavailable [phone] Reason for Visit * Reason Comments Oncology Nurse Navigation case status higinio adams (closed) Encounter Details Date Type Department Care Team (Late st Contact Info) Description 09/17/2024 Patient Outreach [place] [address] Krystin Padilla, RN Oncology Nurse Navigation (case status change (closed)) Social History Tobacco Use Types Packs/Day Years Used Date Smoking Tobacco: Never Passive Smoke Exposure: Never Smokeless Tobacco: Never Alcohol Use Standard Drinks/Week Comments Yes 0 (1 standard drink = 0.6 oz pur e alcohol) 2-3 x weekly [id number] Health Literacy Answer Date Recor ded [...] and Family Not on file 01/22/2024 Attends Jain Services Not on file 01/21 Active Member [...] Recorded PHQ-2 Total Score 0 03/24/2024 [facility] of Occupat ional Health - Occupational Stress [...] any time in the past 12 m [facility], were you homeless or living in a halfway (including now)? No 01/22/2024 Sexually Active Control Partners Comments Yes Surgical [...] Jaspreet Andrews RMA documented in this encounter Progress Notes * Krystin Padilla RN - 09/17/2024 10:41 AM EDT Navigation Assessment Chief complaint: Chief Complaint Patient presents with Oncology Nurse Navigation case status change (closed) Current Status: Active Diagnosis: Breast Visit Type: Documentation Only Reason: Record Review Assessment: Treatment Treatment decisions (pt scheduled for DEXA - results to be reviewed by Jimmie to determine appropriate AI for pt to restart.) Intervention: N's plan to follow-up with patient re: DEXA results and recommendations. Pt has SVS appointment scheduled. Onc NN will remain available as needed. Education Education Provided About: Internal Resources Follow-up Plan Other;Survivorship DEXA 10/07; SVS 03/30 Exit interview completed via MyChart message . No barriers or care coordination needs noted at thistime. Patient has Onc NN contact information. Onc NN remains available to patient and providers as needed. documented in this encounter Plan of Treatment Upcoming Encounters Date Type Department Care Team (Late st Contact Info) Description 03/30/2025 12:30 PM EDT Appointment [facility] Women's Wellness [place] One [facility] [place] [address] Carson Yeboah NP [address] [place] [address] [place] [address] 04/21/2025 10:20 AM EDT Office Visit [facility] [place] [address] Yuki Ojeda APRN [address] [address] documented as of this encounter [...] on filedocumented in this encounter Care Teams Batch Mixer Relationship Specialty Start Date End Date Raj Anderson APRN PCP - General Nurse Practitioner 03/15/21 Krystin Padilla RN Oncology Nurse Navigator 01/16/2409/05 documented as of this encounter
--- OUTSIDE RECORDS SUMMARY | 2025-03-12 10:11 | XMS_ITS | Clinical Summary ---
Author Organization [facility] Address [address] [facility] [address] [place] [address] Care Team Providers Care Internet Marketing Analyst Name Role Phone Riley David Kyree VAZQUEZ Primary Care Provider [phone] Allergies Active Allergy Reactions Criticality Noted Date Comments Azithromycin Low 05/17/2021 Other Reaction(s): Other (See Comments) Body redness Gabapentin Other 08/19/2024 Numbness of face Pravastatin Muscle Pain/Myalgia Low 04/17/2023 Prednisone Low 05/17/2021 Other Reaction(s): Other (See Comments) Body redness Medications butalbital-lizzy taminophen-caf feine 50-325-40 MG tablet Take by mouth every 6 (six) hours if needed. Active Aspirin 81 MG capsule Take by mouth 1 (one) time each day. Active Lantus SoloStar 100 UNIT/ML 3ml Pen INJECT 30 UNITS SUBCUTANEOUSLY ONCE DAILY Active Fiasp FlexTouch 100 UNIT/ML injection INJECT 10-14 UNITS THREE TIMES WITH MEALS. ON SLIDING SCALE MAX DAILY DOSE 60 UNITS Active levothyroxine (Synthroid, Levoxyl) 88 MCG tablet Take 88 mcg by mouth 1 (one) time each day. 4 Active metFORMIN XR (Glucophage-XR ) 500 MG 24 hr tablet Take 500 mg by mouth 1 (one) time each day. Active venlafaxine (Effoxor) 37.5 MG tablet Take 37.5 mg by mouth 2 (two) times a day. 4 Active acetaminophen (Tylenol) 325 MG tablet Take by mouth every 6 (six) hours if needed for mild pain. Active Continuous Glucose Sensor (FreeStyle Deion 3 Sensor) misc CHANGE SENSOR EVERY 14 DAYS 4 Active OneTouch Verio test strip USE 1 STRIP TO CHECK GLUCOSE THREE TIMES DAILY 3 Active BD Pen Needle Lisa 2nd Gen 32G X 4 MM misc Use to inject insulin 4 times daily. 4 Active insulin lispro (HumaLOG) 100 UNIT/ML injection 3 (three) times a day with meals. 5 Active Social History Tobacco Use Types Packs/Day Years Used Date Smoking Tobacco: Former Cigarettes Passive Smoke Exposure: Never Smokeless Tobacco: Never Comments Unknown Sex and Gender Information Value Date Recorded Sex Assigned at Not on file Legal Sex Female 5:50 PM EDT Gender Identity Not on file Sexual Orientation Not on file Last Filed Vital Signs Vital Sign Reading Time Taken Comments Blood Pressure 109/71 08/19/2024 2:54 PM EST Pulse 90 08/19/2024 2:54 PM EST Temperature - - Respiratory Rate 18 08/19/2024 2:54 PM EST Oxygen Saturation 96% 08/19/2024 2:54 PM EST Inhaled Oxygen Concentration - - Weight 68.8 kg (151 lb 9.6 oz) 08/19/2024 2:54 P M EST Height 157.5 cm (5' 2 ) 08/19/2024 2:54 PM EST Body Mass Index 27.73 08/19/2024 2:54 PM EST Plan of Treatment Health Maintenance Due Date Last Done Comments CT Colonography 1974 Colonoscopy 1974 Colorectal Cancer Screening 1974 FIT-DNA (Cologuard) 1974 FIT 1974 FOBT 1974 HIV Screening 1974 Hepatitis C Screening 1974 Lipid Panel 1974 Sigmoidoscopy 1974 MMR Vaccines (1 of 1 - Standard series) 1975 Hepatitis B Screening 1992 DTaP/Tdap/Td Vaccines (1 - Tdap) 1993 Hepatitis B Vaccines (1 of 3 - 19+ 3-dose series) 1993 Pneumococcal Vaccine: 50+ Years (1 of 2 - PCV) 1993 Pap Smear 1995 Cervical Cancer Screening 2004 HPV/Cotest 2004 COVID-19 Vaccine ( season) 2024 04/14/2021, 03/15/2021 Zoster Vaccines (1 of 2) 2024 Depression Risk Screening 07/08/2024 SDOH Screening 07/08/2024 Mammogram 01/09/2025 01/10/2024, 12/19/2023 Influenza Vaccine (#1) 2025 03/24/2024 Diabetes Screening 05/03/2025 05/03/2024, 0 12/09/2023, 08/12/2023, Additional history exists HIB Vaccines Aged Out No longer eligi ble based on patient's age to complete this topic HPV Vaccines Aged Out No longer eligi ble based on patient's age to complete this topic Hepatitis A Vaccines Aged Out No long er eligible based on patient's age to complete this topic IPV Vaccines Aged Out No longer eligi ble based on patient's age to complete this topic Meningococcal B Vaccine Aged Out No l onger eligible based on patient's age to complete this topic Meningococcal Vaccine Aged Out No georgina lauren eligible based on patient's age to complete this topic Rotavirus Vaccines Aged Out No longer eligible based on patient's age to complete this topic Procedures Procedure Name Priority Date/Time Associated Diagnosis Comments CMP COMPREHENSIVE METABOLIC PANEL STAT 05/03/2024 7:05 PM EDT from Last 3 Months or Most Recently Relevant to Health Maintenance Results * (ABNORMAL) Comprehensive metabolic panel (05/03/2024 7:05 PM EDT) Sodium 137 135 - 143 mmol/L 05/03/2024 7:35 PM EDT [facility] Potassium 4.2 3.5 - 4.8 mmol/L 05/03/2024 7:35 PM EDT [facility] Chloride 103 100 - 108 mmol/L 05/03/2024 7:35 PM EDT [facility] CO2 20(L) 21 - 31 mmol/L 05/03/2024 7:35 PM EDT [facility] Anion Gap 14.0(H) 2.0 - 11.0 05/03/2024 7:35 PM EDT [facility] Calcium 8.9 8.4 - 10.2 mg/dL 05/03/2024 7:35 PM EDT [facility] SS Glucose 278(H) 70 - 110 mg/dL 05/03/2024 7:35 PM EDT [facility] Rem[facility] SS BUN 14 6 - 20 mg/dL 05/03/2024 7:35 PM EDT [facility] SS Creatinine 0.96 0.44 - 1.03 mg/dL 05/03/2024 7:35 PM EDT [facility] BUN/Creatinine Ratio 14.6 6.0 - 22.0 05/03/2024 7:35 PM EDT [facility] Albumin 3.5 3.3 - 4.5 Gram/dL 05/03/2024 7:35 PM EDT [facility] Total Protein 7.1 6.3 - 8.2 Gram/dL 05/03/2024 7:35 PM EDT [facility] CH [facility] A/G Ratio 1.0 1.0 - 1.7 05/03/2024 7:35 PM EDT [facility] Alkaline Phosphatase 76 25 - 105 Units/Lite r 05/03/2024 7:35 PM EDT [facility] ALT (SGPT) 26(H) <=24 Units/Lite r 05/03/2024 7:35 PM EDT [facility] AST 31 8 - 34 Units/Lite r 05/03/2024 7:35 PM EDT [facility] CH [facility] SS Total Bilirubin 1.0 0.3 - 1.0 mg/dL 05/03/2024 7:35 PM EDT [facility] SS Globulin, Total 4 7:35 PM EDT [facility] EGFR 73 >=60 mL/min/1.7 3m2 05/03/2024 7:35 PM EDT [facility] SS Comment:eGFR calculation per formed using the CKD-EPI 2020 equation (race variable excluded) Blood 05/03/2024 7:05 PM EDT 05/03/2024 7:10 PM EDT [facility] - 05/03/2024 7:35 PM EDT [phone] JOCELINE COLINDRES NSG2c Lalito Perez MD LAB BLOOD ORDERABLES Ed ited Result - Final [facility] [address] [place] [address], [facility] Rem[facility] SS Pathology Department [address] [place] [address] from Last 3 Months or Most Recently Relevant to Health Maintenance Insurance EX[employer]ANGE ANTHEM Care Teams Internet Marketing Analyst Relationship Specialty Start Date End Date David Lin DO [address] [id number] PCP - General Family Medicine 04/07/24
== END 2025-03-10 23:59 ==
LOC: LAB.DROPOF 03-12 10:09
PROVIDERS: PCP Nurse Practitioner Family; Visit Provider Nurse Practitioner Family
DX: R35.0 Frequency of micturition (principal)
CPT/HCPCS: 87086; 87088; 87186